=== PATIENT | male | born 1960 | race Caucasian/White ===

== ENCOUNTER 2022-04-26 23:51 | Emergency (ER) | payer OTHER, SELFPAY ==
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
[2022-04-26 23:57] VITALS: BP 130/90; PULSE 72; RESP 16; TEMP 36.8; O2SAT 94; BMI 35.2
[2022-04-27] MEDS: tetanus-dipt-pertussis 0.5 mL SDV IM (00:05)
[2022-04-27 02:31] VITALS: BP 154/82; PULSE 87; RESP 16
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
== END 2022-04-27 02:55 | disposition left against medical advice (07) ==
PROVIDERS: Emergency Provider Emergency Medicine
DX: S21.211A Laceration without foreign body of right back wall of thorax without penetration into thoracic cavity, initial encounter (principal); S01.311A Laceration without foreign body of right ear, initial encounter; S06.5X9A Traumatic subdural hemorrhage with loss of consciousness of unspecified duration, initial encounter; V69.9XXA Occupant (driver) (passenger) of heavy transport vehicle injured in unspecified traffic accident, initial encounter; Z53.21 Procedure and treatment not carried out due to patient leaving prior to being seen by health care provider; Z23 Encounter for immunization
CPT/HCPCS: 12004; 12013; 70450; 71045; 72125; 90471; 90715; 99284

== ENCOUNTER → 2022-11-09 10:32 | Outpatient (BNVA) | payer OTHER, SELFPAY | PROVIDERS: Visit Provider Nurse Practitioner Family | DX: R06.09 Other forms of dyspnea (principal) | CPT/HCPCS: 71046 ==

== ENCOUNTER → 2022-12-27 10:25 | Outpatient (BNVA) | payer OTHER, SELFPAY | PROVIDERS: Visit Provider Internal Medicine Cardiovascular Disease | DX: R06.02 Shortness of breath (principal); R94.31 Abnormal electrocardiogram [ECG] [EKG] | CPT/HCPCS: 36415; 80048; 83880 ==